=== PATIENT | male | born 1955 | race American Indian/Alaskan Native ===

== ENCOUNTER 2019-01-02 07:59 | Day surgery (SDC) | payer MEDICARE ==
[~2019-01-02 07:59] MED LIST: ANCEF/STERILE WATER 2 GM/20 ML IV NR
[2019-01-02 10:09] LABS: Basophils % (Auto) 0.4 % (0.0-1.8); Eosinophils # (Auto) 0.1 K/mm3 (0.0-0.4); Eosinophils % (Auto) 1.9 % (0.0-4.3); Hematocrit 32.1 % (35.5-45.6); Hemoglobin 10.7 gm/dl (11.8-15.2); Lymphocytes % (Auto) 18.3 % (13.4-35.0); Mean Corpuscular HGB Conc 33 % (32-34); Mean Corpuscular Volume 94 fl (84-94); Monocytes # (Auto) 0.6 K/mm3 (0.0-0.8); Monocytes % (Auto) 11.5 % (0.0-7.3); Platelet Count 161 K/mm3 (140-440); Red Blood Count 3.43 M/mm3 (3.65-5.03); Red Cell Distribution Width 17.9 % (13.2-15.2)
--- NOTE | 2019-01-02 10:16 | Anesthesia Day of Surgery ---
Anesthesia Day of Surgery - Day of Surgery Patient Examined: Yes Patient H&P Reviewed: Yes Patient is NPO: Yes Beta Blockers: No
--- NOTE | 2019-01-02 10:18 | Anesthesia Consultation ---
Anesthesia Consult and Med Hx Date of service: 01/02/19 - Airway Anesthetic Teeth Evaluation: Good ROM Head & Neck: Adequate Mental/Hyoid Distance: Adequate Mallampati Class: Class III Intubation Access Assessment: Good - Pulmonary Exam CTA: Yes - Cardiac Exam Cardiac Exam: No Murmur - Pre-Operative Health Status ASA Pre-Surgery Classification: ASA4 (MW) Proposed Anesthetic Plan: General - Pulmonary Hx Smoking: No Hx Asthma: No COPD: No Hx Pneumonia: No Hx Sleep Apnea: Yes (DX SLEEP APNEA , NO CPAP USE.) - Cardiovascular System Hx Hypertension: Yes (OFF MEDS X 10 YRS) Hx Peripheral Vascular Disease: Yes (PT UNSURE) - Endocrine Hx Renal Disease: Yes (left arm fistula M_W_F) Hx End Stage Renal Disease: Yes (AVF LEFT UPPER ARM) - Hematic Hx Anemia: Yes (UNSURE) - Other Systems Hx Cancer: No
[2019-01-02] MEDS ORDERED: LACTATED RINGERS 1,000 ML IV SCH (10:29)
[2019-01-02] MEDS ORDERED: NEURONTIN PO NR (10:30)
[2019-01-02] MEDS ORDERED: PEPCID IV NR (10:32)
[2019-01-02] MEDS ORDERED: DECADRON IV NR (10:33)
[2019-01-02] MEDS ORDERED: MARCAINE-EPI 0.5%-1:200,000 INFILTRATI NR (10:34)
[2019-01-02] MEDS ORDERED: VERSED IV NR (11:00)
[2019-01-02] MEDS ORDERED: ANCEF/STERILE WATER 2 GM/20 ML IV ONE (11:00)
[2019-01-02] MEDS ORDERED: SUBLIMAZE ONE (12:03)
[2019-01-02] MEDS ORDERED: XYLOCAINE MPF 2% ONE (12:04)
[2019-01-02] MEDS ORDERED: ROBINUL ONE (12:04)
[2019-01-02] MEDS ORDERED: DIPRIVAN 10 MG/ML IV ONE (12:04)
--- NOTE | 2019-01-02 14:30 | XRay Report ---
LEFT ANKLE, 2 VIEWS History: Left ankle fracture. Findings: AP and lateral fluoroscopic images are presented during surgery. The images demonstrate internal fixation of a bimalleolar fracture in the left ankle. Alignment is anatomic. The ankle mortise is unremarkable. There is diffuse soft tissue swelling. Impression: Open reduction and internal fixation of a bimalleolar fracture.
--- NOTE | 2019-01-02 14:30 | Procedure Note ---
Date of procedure: 01/02/19 Pre-op diagnosis: displaced left bimalleolar ankle fracture Post-op diagnosis: same Procedure: Open reduction internal fixation left ankle Procedure The patient was brought to the OR after being given a femoral nerve block in preop holding he was placed on the OR table supine following induction with Mac anesthesia the patient's left lower extremity was prepped and draped in the usual sterile manner. A timeout procedure was done to identify the patient and the correct operative site. The leg was exsanguinated followed by inflation of the pneumatic tourniquet to 300 mmHg A lateral incision was made over the distal fibula this was taken down sharply through skin and subcutaneous patient at the fracture site which was debrided the fracture fragments were manipulated into a more reduced position a quick check on our C-arm showed overall good alignment of the distal fibula fracture next a 7 hole semitubular plate was applied to the distal fibula with 3.5 mm cancellus and cortical screws were used to stabilize the fracture fragments following this attention was turned to the medial malleolus fracture again using a straight incision over the medial border of the distal tibia this is then taken down sharply through skin and subcutaneous using sharp dissection the bone and periosteum were seen again due to the time since injury to the patient was noted to have early fracture callus formation therefore debridement with curettes the fracture was then manipulated into a more reduced position to 4.5 cannulated screws were used to stabilize the medial malleolus fracture again C-arm fluoroscopy was used to evaluate the reduction and placement of our hardware following his stay was copiously irrigated and was closed in a standard routine fashion. Dressings were applied the patient tolerated the procedure and there were no complications Anesthesia: MAC, regional Surgeon: TONY WHITTAKER Hand Weaver: RANDALL ZAPATA Estimated blood loss: minimal Pathology: none Condition: stable Disposition: PACU
[2019-01-02 19:18] VITALS: BP 124/60
== END 2019-01-02 08:00 | disposition home or self-care (01) ==
LOC: OR 07:59
PROVIDERS: ATTEND Orthopaedic Surgery
DX: S82.842A Displaced bimalleolar fracture of left lower leg, initial encounter for closed fracture (principal); I12.0 Hypertensive chronic kidney disease with stage 5 chronic kidney disease or end stage renal disease; E11.22 Type 2 diabetes mellitus with diabetic chronic kidney disease; N18.6 End stage renal disease; D64.9 Anemia, unspecified; E11.51 Type 2 diabetes mellitus with diabetic peripheral angiopathy without gangrene; M86.9 Osteomyelitis, unspecified; G47.30 Sleep apnea, unspecified; Z79.899 Other long term (current) drug therapy; Z91.81 History of falling; Z99.2 Dependence on renal dialysis; X58.XXXA Exposure to other specified factors, initial encounter; Y93.89 Activity, other specified; Y92.89 Other specified places as the place of occurrence of the external cause; Y99.8 Other external cause status
CPT/HCPCS: 27814; 36415; 64450; 73600; 80053; 82962; 85025; C1713; C1769; J0690; J1100; J2250; J2704; J3010; J7120

== ENCOUNTER 2019-03-31 10:04 | Outpatient (CLI) | payer MEDICARE ==
--- NOTE | 2019-03-31 10:44 | XRay Report ---
3 views of the left ankle INDICATION: S82.842A/ DISPLACED BIMALLEOLAR FRACTURE OF LEFT LOWER LEG,. COMPARISON: Previous left ankle radiographs on 01/02/2019 FINDINGS: There has been some progressive healing of the bimalleolar left ankle fractures without concerning ch elsi in alignment or hardware fracture since the prior study. There is decreasing soft tissue swellin g around the ankle. Signer Name: Loco Arango MD Signed: 03/31/2019 10:40 AM Workstation Name: [id number]
== END 2019-03-31 10:05 | disposition home or self-care (01) ==
LOC: XRAY 10:04
PROVIDERS: ATTEND Orthopaedic Surgery
DX: S82.842G Displaced bimalleolar fracture of left lower leg, subsequent encounter for closed fracture with delayed healing (principal); I12.0 Hypertensive chronic kidney disease with stage 5 chronic kidney disease or end stage renal disease; N18.6 End stage renal disease; X58.XXXD Exposure to other specified factors, subsequent encounter